=== PATIENT | male | born 1995 | race Caucasian/White ===

== ENCOUNTER 2020-05-05 11:02 | Emergency (ER) | payer OTHER, SELFPAY ==
[2020-05-05 11:21] VITALS: BP 122/75; PULSE 83; RESP 18; TEMP 37; O2SAT 100
[2020-05-05] MEDS: OXYMETAZOLINE HCL 0.05% NAS 15 ML BTL (*BKC) 1 SPRAY (11:45)
--- NOTE | 2020-05-05 11:45 | PC.NURSE ---
provider in room. no further bleeding from left nare while here in ED.
--- NOTE | 2020-05-05 11:53 | ED.EPISTAXIS ---
HPI - Epistaxis General Chief complaint: Epistaxis Stated complaint: nosebleed Time Seen by Provider: 05/05/20 11:15 Source: patient Mode of arrival: ambulatory Limitations: no limitations History of Present Illness HPI Narrative: Patient presents with chief complaint of now not bleeding left nare that has bled twice since last night. Patient states that he woke up with a nosebleed last night and sneezed today at 9 AM and had intermittent nosebleeds for an hour or so so he came to the emergency department. Patient states that he normally has allergies but has not had any allergy-like symptoms recently. Patient states that he recently started using the humidifier in his bedroom at night. Patient states that he does work around a lot of chemicals at work and will but he does wear a mask. Patient denies any headache, nausea, vomiting, neck rigidity, fever or radicular symptoms. Related Data Home Medications Medication Instructions Recorded Confirmed No Home Medications 05/05/20 05/05/20 Allergies Allergy/AdvReac Type Severity Reaction Status Date / Time bee pollen Allergy Anaphylaxis Verified 05/05/20 11:25 Review of Systems Review of Systems: Narrative: CONSTITUTIONAL: Denies fever, chills, or sweats. EYES: Denies visual changes, redness, or discharge. ENT: Reports epistaxis denies rhinorrhea, congestion, sore throat, or otalgia. CARDIOVASCULAR: Denies chest pain, palpitations, or edema. RESPIRATORY: Denies cough or dyspnea. GASTROINTESTINAL: Denies abdominal pain, nausea, vomiting, or diarrhea. GENITOURINARY: Denies dysuria or hematuria. SKIN: Denies rash or itching. MUSCULOSKELETAL: Denies back pain, joint pain, or myalgia. NEUROLOGIC: Denies headache, numbness, dizziness, or weakness. PSYCHIATRIC: Denies anxiety or depression. Exam Narrative: Exam Narrative: GENERAL: Well-appearing, well-nourished, and in no acute distress. HEAD: Normocephalic, atraumatic. EYES: PERRLA and EOMI. ENT: Left nare with dried blood. No active bleeding. Mucous membranes of nose dry other mucous membranes moist. Oropharynx without tonsillar hypertrophy exudate or other lesions. Bilateral TMs pearly burt nonbulging NECK: Supple. No adenopathy or masses. Range of motion intact CHEST: Clear to auscultation. No respiratory distress. No wheezes rales or rhonchi HEART: Regular rate and rhythm. EXTREMITIES: Normal range of motion. No edema. SKIN: Warm, dry, no rash. NEURO: No focal deficits. Alert and oriented x3. PSYCH: Normal mood and affect. Course Vital Signs Vital signs: Vital Signs Temperature 98.6 F 05/05/20 11:21 Pulse Rate 83 05/05/20 11:21 Respiratory Rate 18 05/05/20 11:21 Blood Pressure 122/75 05/05/20 11:21 Pulse Oximetry 100 05/05/20 11:21 Temperature 98.6 F 05/05/20 11:21 Pulse Rate 83 05/05/20 11:21 Respiratory Rate 18 05/05/20 11:21 Blood Pressure 122/75 05/05/20 11:21 Pulse Oximetry 100 05/05/20 11:21 MDM - Epistaxis MDM Narrative Medical decision making narrative: Afrin applied to patient's nose in room. Patient does not have active bleeding at this time. Patient instructed to use Afrin over the next 3 days. Patient instructed to use Flonase as needed after that. Patient directed to return to emergency department if she has any emergent symptoms. Differential Diagnosis Differential diagnosis: Likely nasal bone fracture, anterior epistaxis and posterior epistaxis Discharge Plan Discharge Clinical Impression: Epistaxis Patient Disposition: Home, Self-Care Condition: Improved Instructions: Antibiotic Form, Nosebleed (ED) Additional Instructions: Use Afrin twice a day over the next 3 days. After 3 days discontinue Afrin and you may switch to [id number] Flonase if needed. Use humidifier in your room to keep area moisturized. Apply Neosporin using Q-tip to your nasal passages gently. Avoid blowing nose or sneezing. Return to emergency department if you h
== END 2020-05-05 12:05 | disposition home or self-care (01) ==
PROVIDERS: Emergency Provider Emergency Medicine; PCP Emergency Medicine
DX: R04.0 Epistaxis (principal)
CPT/HCPCS: 99283; A9270